=== PATIENT | female | born 1965 | race Caucasian/White ===

== ENCOUNTER 2016-12-01 18:29 | Emergency (ER) | payer OTHER ==
[2016-12-01] MEDS ORDERED: LORazepam 1 MG TABLET ONE ×2 (18:58→19:47)
[2016-12-01 19:16] LABS: BLOOD UREA NITROGEN 17 mg/dL (7-17); CALCIUM 9.6 mg/dL (8.4-10.2); CHLORIDE 108 mmol/L (98-107); CREATININE 0.7 mg/dL (0.5-1.0); EST GLOMERULAR FILTRATION RATE > 60 mL/min; GLUCOSE 100 mg/dL (70-100); POTASSIUM 3.8 mmol/L (3.5-5.1); SODIUM 142 mmol/L (137-145)
[2016-12-01 19:21] LABS: BASOPHILS 0.5 % (0.0-2.0); EOSINOPHILS 0.4 % (0.0-6.0); HEMATOCRIT 43.8 % (36.0-48.0); HEMOGLOBIN 15.1 g/dL (12.0-16.0); LYMPHOCYTES 26.3 % (20.0-40.0); MEAN CELL VOLUME 88.6 fL (80.0-100.0); MEAN CORPUS. HGB CONCENTRATION 34.5 g/dL (32.0-36.0); MEAN CORPUSCULAR HEMOGLOBIN 30.6 pg (29.0-35.0); MEAN PLATELET VOLUME 6.6 fL (7.4-10.4); MONOCYTES# 0.5 X 10^3uL (0.2-1.0); NEUTROPHILS 66.8 % (54.0-75.0); NEUTROPHILS# 5.3 X 10^3uL (2.6-6.7); PLATELET COUNT 338 X 10^3uL (130-440); RED BLOOD COUNT 4.94 X 10^6uL (4.20-6.10); RED CELL DISTRIBUTION WIDTH 12.5 % (11.5-14.5); WHITE BLOOD COUNT 7.8 X 10^3uL (3.9-10.7)
[2016-12-01 19:28] LABS: TROPONIN I < 0.012 ng/mL (0.00-0.034)
--- NOTE | 2016-12-01 20:18 | ER PHYSICIAN DOCUMENTATION ---
Physician Documentation [facility] Name:Gin Mock Age:51 yrs Sex:Female :1965 Arrival Date:12/01/2016 Time:18:29 BedTrauma C Private MD:Jani Mcgee ED, Chris Disposition: 12/01 19:29 Critical Care: not applicable. cd 19:35 Chart complete. cd Disposition: 12/01/16 19:30 Discharged to Home/Self Care. Impression: Musculoskeletal Chest Pain, Anxiety Reaction, Panic Disorder. - Condition is Good. - Discharge Instructions: ANXIETY REACTION, CHEST WALL PAIN, Costochondritis, PANIC ATTACK. - Prescriptions for Ativan 1 mg Oral Tablet - take 1 tablet by ORAL route every 8 hours As needed; 10 tablet. - Medical Reconciliation form form. - Follow up: Jani Mcgee MD; When: 1 week; Reason: Recheck today's complaints, Continuance of care. - Problem is new. - Symptoms are resolved. - Notes: Rest. Take Ativan 1mg under tongue every 8 hours as needed for anxiety. Discard Xanax you have at home. Take Tylenol 650mg by mouth every 6 hours as needed for chest wall pain. Drink plenty of fluids. HPI: 18:31 This 51 yrs old Female presents to ER via Private Vehicle with complaints of cd Chest Pain. 18:31 The patient or guardian reports chest pain that is located primarily in the anterior cd chest wall. Onset: acutely, 2 day(s) ago, Patient has been under a lot of stress over the past few weeks. She has been working on a restraining order and has had a lot of anxiety ,especially over the last few days. She occasionally takes Xanax for the anxiety at home. She reports that she add chest pains in year 2012 and underwent Cardiac Catheterization. Her heart Cath was completely normal.. The pain does not radiate. There has been no movement of pain. Associated signs and symptoms: Pertinent positives: diaphoresis, headache, Pertinent negatives: lower extremity pain, lower extremity swelling, lightheadedness, nausea, palpitations, recent travel, shortness of breath, syncope, vomiting. The chest pain is described as aching, dull. Duration: The patient or guardian reports multiple episodes, that are intermittent. Severity of pain: At its worst the pain was moderate in the emergency department the pain has improved moderately. Risk factors for coronary artery disease include: This patient has a family history of coronary artery disease. The patient has experienced a previous episode, approximately 4 years ago, Cath normal at that tiime. Historical: - Allergies: Lasix; Percocet; - Home Meds: 1. Reglan Oral 2. Vitamin B-12 Oral - PMHx: None; - PSHx: KNEE SURGERY; SHOULDER SURGERY; neck; - Tetanus: < 10 years. - Ebola Screening: : Patient denies exposure to infectious person. Patient denies travel to an Ebola-affected area in the 21 days before illness onset. . - Social history: Smoking status: Patient states was never smoker of tobacco. ROS: 19:00 ENT: Negative for injury, pain, epistaxis and discharge. cd Neck: Negative for injury, pain, stiffness and swelling. Back: Negative for injury, pain or muscle spasms. : Negative for injury, bleeding, discharge, dysuria, frequency, urgency and swelling. MS/Extremity: Negative for injury, deformity, edema, calf tenderness, pain or coldness. Skin: Negative for injury, rash, itching and discoloration. 19:00 Neuro: Negative for headache, weakness, numbness, tingling, and seizure. cd 19:00 Constitutional: Positive for poor PO intake, Negative for chills, fever. 19:00 Cardiovascular: Positive for chest pain, Negative for edema, orthopnea, palpitations, paroxysmal nocturnal dyspnea. 19:00 Respiratory: Negative for hemoptysis, pleurisy, shortness of breath, wheezing. 19:00 Abdomen/GI: Negative for nausea, vomiting, anorexia. 19:00 Psych: Positive for anxiety, insomnia. 19:00 All other systems are negative. Exam: Head/Face: Normocephalic, atraumatic. Eyes: Pupils equal round and reactive to light, extra-ocular motions intact. Lids and lashes normal. Conjunctiva and sclera are non-icteric and not injected. Cornea within normal limits. Periorbital areas with no swelling, redness, or edema. ENT: Nares patent. No nasal discharge, no septal abnormalities noted. Tympanic membranes are normal and external auditory canals are clear. Oropharynx with no redness, swelling, or masses, exudates, or evidence of obstruction, uvula midline. Mucous membranes dry Neck: Trachea midline, no thyromegaly or masses palpated, and no cervical lymphadenopathy. Supple, full range of motion without nuchal rigidity, or vertebral point tenderness. No Meningismus. Chest/axilla: Normal chest wall appearance and motion. Nontender with no deformity. No lesions are appreciated. Abdomen/GI: Soft, non-tender, with normal bowel sounds. No distension or tympany. No guarding or rebound. No evidence of tenderness throughout. Back: No spinal tenderness. No costovertebral tenderness. Full range of motion. Skin: Warm, dry with normal turgor. Normal color with no rashes, no lesions, and no evidence of cellulitis. MS/ Extremity: Pulses equal, no cyanosis. Neurovascular intact. Full, normal range of motion. 19:10 Neuro: Awake and alert, GCS 15, oriented to person, place, time, and situation. cd Cranial nerves II-XII grossly intact. Motor strength 5/5 in all extremities. Sensory grossly intact. Cerebellar exam normal. Normal gait. 19:10 Constitutional: The patient appears alert, awake, non-diaphoretic, non-toxic, well developed, well nourished, anxious, in obvious distress, mildly distressed. 19:10 Cardiovascular: Rate: normal, Rhythm: regular, Pulses: no pulse deficits are appreciated, Heart sounds: normal, Edema: is not appreciated. 19:10 Respiratory: the patient does not display signs of respiratory distress, Respirations: normal, no acute changes, Breath sounds: are normal, clear throughout. 19:10 Psych: Behavior/mood is pleasant, cooperative, anxious, Affect is animated, Oriented to person, place, time, Patient has no thoughts/intents to harm self or others. Judgement / Insight is normal. Memory is normal. Delusions/hallucinations are not present. 19:10 Chest/axilla: Inspection: normal, Palpation: tenderness, that is moderate, of the cd anterior aspect of left upper chest and left breast, that totally reproduces the patient's complaints. Vital Signs: 18:30 BP 152 / 101; Pulse 96; Resp 20; Pulse Ox 97% on R/A; Pain 3/10; st 19:44 BP 145 / 80; Pulse 71; Resp 14; Pulse Ox 98% on R/A; Pain 0/10; lb 20:16 BP 150 / 77; Pulse 80; Resp 15; Pulse Ox 98% on R/A; Pain 0/10; lb 20:17 BP 150 / 77; Pulse 80; Resp 15; Pulse Ox 98% on R/A; Pain 0/10; lb [place] Coma Score: 19:10 Eye Response: spontaneous(4). Verbal Response: oriented(5). Motor Response: obeys cd commands(6). Total: 15. MDM: 18:40 Data interpreted: office clinician: rate is 80 beats/min, rhythm is normal sinus rhythm, cd regular, with no ectopy, Interpretation: normal rate, normal rhythm, Pulse oximetry: on room air is 98 %. Interpretation: normal. 19:04 ECG:. cd 19:05 Patient medically screened. cd 19:10 Differential diagnosis: acute myocardial infarction, acute pericarditis, anxiety, cd coronary artery disease chest wall pain. 19:12 Differential diagnosis: Differential diagnosis: acute myocardial infarction, acute cd pericarditis, anxiety, coronary artery disease chest wall pain, unstable angina. Patient took aspirin in the Emergency Department. Patient did not receive fibrinolytic due to not indicated. 19:30 Data reviewed: vital signs, nurses notes, old medical records, lab test result(s), EKG, cd and as a result, I will discharge patient. 19:35 Counseling: I had a detailed discussion with the patient and/or guardian regarding: the cd historical points, exam findings, and any diagnostic results supporting the discharge/admit diagnosis, lab results, the need for outpatient follow up, for a recheck, with the patient's primary care provider, to return to the emergency department if symptoms worsen or persist or if there are any questions or concerns that arise at home. Response to treatment: the patient's symptoms have markedly improved after treatment, the patient's condition has returned to base line, the patient is now symptom free, patient is well hydrated. and as a result, I will discharge patient. 12/01 19:20 Order name: BASIC METABOLIC PANEL; Complete Time: 19:33 EDMS 12/01 19:23 Interpretation: Normal. cd 12/01 19:20 Order name: MAGNESIUM; Complete Time: 19:33 EDMS 12/01 19:23 Interpretation: Normal. cd 12/01 19:24 Order name: CBC AUTO DIF, MDIF/RMOR IF IND; Complete Time: 19:33 EDMS 12/01 19:25 Interpretation: Normal. 12/01 19:29 Order name: TROPONIN I; Complete Time: 19:33 EDMS 12/01 19:33 Interpretation: Normal. 02 18:58 Order name: EKG - 12 Lead; Complete Time: 18:59 st EC:04 Rate is 82 beats/min. Rhythm is regular. QRS Ryde is Normal. MI interval is normal. QRS cd interval is normal. QT interval is normal. No Q waves. T waves are Normal. No ST changes noted. Clinical impression: Normal ECG and No evidence of ischemia. Interpreted by me. Dispensed Medications: Completed: NS 0.9% 1000 ml IV at bolus once 18:58 Drug: Ativan 1 mg; Route: PO; st 19:41 Follow up: Response: Anxiety decreased lb 19:07 Drug: NS 0.9% 1000 ml; Route: IV; Rate: bolus; Site: right antecubital; st 19:42 Follow up: IV Status: Infusion discontinued; IV Intake: 1000ml lb 19:41 Drug: Ativan 1mg 1 mg; Route: Sublingual; lb 19:41 Follow up: Response: Pharmacy closed - take home med pack lb Signatures: Magaly Calhoun RN RN st Daley, Chris, MD MD cd Bollock, Lynda lb
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
== END 2016-12-01 20:18 | disposition home or self-care (01) ==
LOC: ER 18:29
DX: R07.81 Pleurodynia (principal); F41.0 Panic disorder [episodic paroxysmal anxiety]; F41.9 Anxiety disorder, unspecified; E86.0 Dehydration; Z82.49 Family history of ischemic heart disease and other diseases of the circulatory system; Z79.899 Other long term (current) drug therapy
CPT/HCPCS: 80048; 83735; 84484; 85025; 93005; 96360; 99284

== ENCOUNTER 2017-02-28 15:43 | Emergency (ER) | payer OTHER ==
--- NOTE | 2017-02-28 16:51 | ER PHYSICIAN DOCUMENTATION ---
Physician Documentation [facility] Name:Gin Mock Age:51 yrs Sex:Female :1965 Arrival Date:02/28/2017 Time:15:43 Bed1 Private MD:Jani Mcgee ED, Chris Disposition: 02/28 16:15 Chart complete. cd Disposition: 02/28/17 16:19 Discharged to Home/Self Care. Impression: Foot Laceration - : Simple Closure; 1.5 cm, by MD. - Condition is Good. - Discharge Instructions: LACERATION, Foot. - Medical Reconciliation form form. - Follow up: Emergency Department; When: 03/12/2017; Reason: Recheck today's complaints, Continuance of care, Staple/Suture removal. - Problem is new. - Symptoms are resolved. - Notes: Keep clean, dry and covered. Sutures out in 12 days on 03/12/2017 Remember 2012...your last Tetanus Booster! HPI: 15:50 This 51 yrs old Female presents to ER via Private Vehicle with complaints of cd Laceration To Foot - LEFT. 15:50 The patient has a laceration related to: walking in house and cut on tile occurred at cd home, and there are no complicating factors. The injury was accidental. The laceration(s) is(are) located on the ball of left foot. Onset: The symptom(s)/episode began/occurred acutely, this morning, 7 hour(s) ago. Associated signs and symptoms: The patient has no apparent associated signs or symptoms. Tetanus Booster is UTD. Historical: - Allergies: Lasix; Percocet; - Home Meds: 1. Vitamin B-12 Oral 2. Ativan Oral - PMHx: NONE; - PSHx: KNEE SURGERY; SHOULDER SURGERY; neck; HYSTERECTOMY; - Tetanus: < 10 years. - Ebola Screening: : Patient denies exposure to infectious person. Patient denies travel to an Ebola-affected area in the 21 days before illness onset. . - Social history: Smoking status: Patient states was never smoker of tobacco. Patient/guardian denies using alcohol, marijuana. ROS: 16:05 Skin: Positive for laceration(s), of the ball of left foot. cd 16:05 All other systems are negative. Exam: 16:05 Musculoskeletal/extremity: Circulation is intact in all extremities. Sensation cd intact. 16:05 Skin: Appearance: normal except for affected area, injury, laceration(s), the wound is approximately 1.5 cm(s), with a depth of 0.25 cm(s), of the ball of left foot, that can be described as no foreign body, without bleeding. Vital Signs: 16:05 BP 160 / 93; Pulse 83; Resp 20; Temp 98.0; Pulse Ox 93% on R/A; Pain 2/10; st Laceration: 16:05 Wound Repair of 1.5cm ( 0.6in ) subcutaneous laceration to ball of left foot. Distal cd neuro/vascular/tendon intact. Anesthesia: Local anesthetic administered with 4 mls of 1% lidocaine. Wound prep: Moderate cleansing with hibiclenz. Skin closed with 7 5-0 Ethilon using Interrupted sutures. Dressed with Bacitracin, bandaid. Patient tolerated well. MDM: 16:05 Differential diagnosis: superficial laceration. cd 16:14 Patient medically screened. cd 16:15 Data reviewed: vital signs, nurses notes, old medical records, and as a result, I will cd discharge patient. Data interpreted: Pulse oximetry: on room air is 93 %. Interpretation: normal. Counseling: I had a detailed discussion with the patient and/or guardian regarding: the historical points, exam findings, and any diagnostic results supporting the discharge/admit diagnosis, to return to the emergency department if symptoms worsen or persist or if there are any questions or concerns that arise at home. Dispensed Medications: No medications were administered Signatures: Magaly Calhoun RN RN st Daley, Chris, MD MD cd
--- NOTE | 2017-02-28 16:51 | ER NURSING DOCUMENTATION ---
Nurse's Notes [facility] Name:Gin Mock Age:51 yrs Sex:Female :1965 Arrival Date:02/28/2017 Time:15:43 Bed1 Private MD:Jani Mcgee Diagnosis:Foot Laceration-: Simple Closure; 1.5 cm, by MD Presentation: 02/28 15:52 Acuity: LOPEZ 3 sc1 15:58 Presenting complaint: Patient states: pt cut her left foot on a floor tile this am at 8 st AM. Pt was seen by PCP and told she needed to come here fro sutures. Transition of care: patient was not received from another setting of care. Complicating Factors: There are no complicating factors for this patient. 15:58 Method Of Arrival: Private Vehicle st Triage Assessment: 16:02 General: Appears uncomfortable, Behavior is crying, pt states she has had a lot of st emotional things going on. . Pain: Complains of pain in ball of left foot Pain currently is 2 out of 10 on a pain scale. Cardiovascular: No deficits noted. Respiratory: No deficits noted. GI: No deficits noted. Injury Description: Laceration sustained to ball of left foot is 0.5 to 2.5 cm long. Historical: - Allergies: Lasix; Percocet; - Home Meds: 1. Vitamin B-12 Oral 2. Ativan Oral - PMHx: NONE; - PSHx: KNEE SURGERY; SHOULDER SURGERY; neck; HYSTERECTOMY; - Tetanus: < 10 years. - Ebola Screening: : Patient denies exposure to infectious person. Patient denies travel to an Ebola-affected area in the 21 days before illness onset. . - Social history: Smoking status: Patient states was never smoker of tobacco. Patient/guardian denies using alcohol, marijuana. Screenin:05 Infectious Disease Risk None. Abuse screen: Denies threats or abuse. Denies injuries st from another. Nutritional screening: No deficits noted. Vital Signs: 16:05 BP 160 / 93; Pulse 83; Resp 20; Temp 98.0; Pulse Ox 93% on R/A; Pain 2/10; st ED Course: 15:44 Patient arrived in ED. ds 15:45 Jani Mcgee MD is Private Physician. ds 15:52 Triage completed. oh1 15:58 Magaly Calhoun, RN is Primary Nurse. st 16:05 Valuables Remains with patient. st 16:06 Assist Provider Assist provider with laceration repair using sutures. Set up tray. st Performed by Cesar Steward MD. 16:14 Cesar Steward MD is Attending Physician. cd 16:19 Wound care was cleaned with dressed with Kerlix. st Administered Medications: No medications were administered Outcome: 04:30 Discharged to home via wheelchair. st 04:30 Condition: improved 04:30 Discharge instructions given to patient, Instructed on discharge instructions, follow up and referral plans. medication usage, wound care. 16:19 Discharge ordered by . cd 16:50 Patient left the ED. st 03/01 10:32 Discharge F/U Call: Unable to reach: no answer oh1 Signatures: Magaly Calhoun RN RN st Campbell, Sandy, RN RN oh1 Srot, Lucila, Reg Reg ds Cesar Steward MD MD cd
== END 2017-02-28 16:51 | disposition home or self-care (01) ==
LOC: ER 15:43
DX: S91.312A Laceration without foreign body, left foot, initial encounter (principal); W26.8XXA Contact with other sharp object(s), not elsewhere classified, initial encounter; Y92.019 Unspecified place in single-family (private) house as the place of occurrence of the external cause; Y93.01 Activity, walking, marching and hiking
CPT/HCPCS: 12001; 99283

== ENCOUNTER 2017-03-12 10:54 | Emergency (ER) | payer OTHER ==
--- NOTE | 2017-03-12 11:10 | ER PHYSICIAN DOCUMENTATION ---
Physician Documentation [facility] Name:Gin Mock Age:51 yrs Sex:Female :1965 Arrival Date:03/12/2017 Time:10:54 Bed2 Private MD: Reji Benjamin Disposition: 03/12/17 11:01 Discharged to Home/Self Care. Impression: Suture Check - normal exam, Suture Check - no infection. - Condition is Good. - Medical Reconciliation form form. - Follow up: Private Physician; When: As needed; Reason: Continuance of care. - Problem is new. - Symptoms are resolved. HPI: 03/12 10:59 This 51 yrs old Female presents to ER with complaints of Suture Removal. sc 10:59 The patient has sutures on the . Previous treatment: The patient was initially treated sc 7 day(s) ago. Sutures/vicki progress: The patient has no c/o's. The wound is well-healing with no redness, swelling, discharge, or dehiscence reported. Historical: - Allergies: Lasix; Percocet; - Home Meds: 1. Vitamin B-12 Oral 2. Ativan Oral - PMHx: NONE; - PSHx: KNEE SURGERY; SHOULDER SURGERY; - Tetanus: < 10 years. - Ebola Screening: : Patient negative for fever greater than or equal to 101.5 degrees Fahrenheit, and additional compatible Ebola Virus Disease symptoms. Patient denies exposure to infectious person. Patient denies travel to an Ebola-affected area in the 21 days before illness onset. . - Social history: Smoking status: Patient states was never smoker of tobacco. - Immunization history: Pneumococcal vaccine is up to date. ROS: 11:00 Constitutional: Negative for fever, chills, and weight loss. sc Neck: Negative for injury, pain, and swelling. MS/Extremity: Negative for injury and deformity. 11:00 Neuro: Negative for headache, weakness, numbness, tingling, and seizure. sc 11:00 Skin: Negative for cellulitis. Exam: Constitutional: This is a well developed, well nourished patient who is awake, alert, and in no acute distress. Skin: Warm, dry with normal turgor. Normal color with no rashes, no lesions, and no evidence of cellulitis. 11:00 Neuro: Awake and alert, GCS 15, oriented to person, place, time, and situation. ia Cranial nerves II-XII grossly intact. Motor strength 5/5 in all extremities. Sensory grossly intact. Cerebellar exam normal. Normal gait. 11:02 Skin: Wound recheck: Suture laceration closure: the wound is healing well. ia Vital Signs: 11:06 BP 148 / 95; Pulse 83; Resp 16; Temp 98.0(O); Pulse Ox 95% on R/A; lp MDM: 11:00 Data reviewed: vital signs, nurses notes, old medical records, and as a result, I will ia discharge patient. 11:01 Patient medically screened. ia 06 11:01 Order name: Suture Removal ia Dispensed Medications: No medications were administered Signatures: Estela Guerrier RN RN Reji Fisher MD MD ia
--- NOTE | 2017-03-12 11:10 | ER NURSING DOCUMENTATION ---
Nurse's Notes [facility] Name:Gin Mock Age:51 yrs Sex:Female :1965 Arrival Date:03/12/2017 Time:10:54 Bed2 Private MD: Diagnosis:Suture Check - normal exam;Suture Check - no infection Presentation: 03/12 11:05 Acuity: LOPEZ 5 tg 11:06 Presenting complaint: Patient states: Suture removal. Transition of care: Home. lp 11:06 Method Of Arrival: Walk In lp Triage Assessment: 11:06 General: Appears in no apparent distress, Behavior is appropriate for age. Pain: Denies lp pain. Historical: - Allergies: Lasix; Percocet; - Home Meds: 1. Vitamin B-12 Oral 2. Ativan Oral - PMHx: NONE; - PSHx: KNEE SURGERY; SHOULDER SURGERY; - Tetanus: < 10 years. - Ebola Screening: : Patient negative for fever greater than or equal to 101.5 degrees Fahrenheit, and additional compatible Ebola Virus Disease symptoms. Patient denies exposure to infectious person. Patient denies travel to an Ebola-affected area in the 21 days before illness onset. . - Social history: Smoking status: Patient states was never smoker of tobacco. - Immunization history: Pneumococcal vaccine is up to date. Screenin:08 Infectious Disease Risk None. Abuse screen: Denies threats or abuse. Denies injuries lp from another. Nutritional screening: No deficits noted. Vital Signs: 11:06 BP 148 / 95; Pulse 83; Resp 16; Temp 98.0(O); Pulse Ox 95% on R/A; lp ED Course: 10:55 Patient arrived in ED. ds 10:57 Reji Fisher MD is Attending Physician. sc 11:05 Triage completed. tg 11:06 Estela Guerrier, WOLFGANG is Primary Nurse. lp 11:[address] Fisher notified. lp 11:07 Valuables Remains with patient Patient has correct armband on for positive lp identification. 11:07 Removed sutures from ball of left foot. Wound care was. lp Administered Medications: No medications were administered Outcome: 11:01 Discharge ordered by . sc 11:08 Discharged to home lp 11:08 Condition: stable 11:08 Instructed on discharge instructions, follow up and referral plans. 11:09 Patient left the ED. lp Signatures: Gunnar Coronel RN RN tg Estela Guerrier RN RN lp Earle, Lucila, Reg Reg Reji Miller MD MD de
== END 2017-03-12 11:10 | disposition home or self-care (01) ==
LOC: ER 10:54
DX: Z48.02 Encounter for removal of sutures (principal); S91.312D Laceration without foreign body, left foot, subsequent encounter
CPT/HCPCS: 99283